=== PATIENT | male | born 1960 | race African-American/Black ===

== ENCOUNTER 2017-07-06 13:57 | Outpatient (CLI) ==
[2014-10-19 01:27] VITALS: BMI 36.9
--- NOTE | 2017-07-06 14:24 | DI ---
EXAM: Two views of the chest. History: Cough and wheezing Comparison: Chest radiograph 02/18/2015 Findings: Heart size is normal. No focal consolidation. No appreciable pleural fluid and no pneum othorax. No acute osseous abnormalities. Impression: No acute cardiopulmonary process. No change compared to the prior study.
== END 2017-07-06 13:58 | disposition home or self-care (01) ==
LOC: RAD 13:57
PROVIDERS: ATTEND Family Medicine
DX: J40 Bronchitis, not specified as acute or chronic (principal)

== ENCOUNTER 2018-06-30 14:39 | Emergency (ER) | payer OTHER ==
[2018-06-30 14:43] VITALS: BP 157/92; TEMP 97.2; BMI 39.0
--- NOTE | 2018-06-30 16:27 | ED.PDOC ---
General ED Provider: Dr. GALILEA BELLO Chief Complaint: Abnormal Labs Stated Complaint: hypokalemia as out pt Time Seen by Physician: 01:45 (seen with nurse ) Mode of Arrival: Walk-In Information Source: Patient, Family Exam Limitations: No limitations Primary Care Provider: ROSALES BANGURA Nursing and Triage Documentation Reviewed and Agree: Yes Does patient meet sepsis criteria?: No System Inflammatory Response Syndrome: Not Applicable Sepsis Protocol: For patient's 13 years and over: Temp is 96.8 and below OR 101 and greater Pulse >90 BPM Resp >20/minute Acutely Altered Mental Status Are patient's symptoms suggestive of a new infection, such as: -Pneumonia -Skin, Soft Tissue -Endocarditis -UTI -Bone, Joint Infection -Implantable Device -Acute Abdominal Infection -Wound Infection -Meningitis -Blood Stream Catheter Infection -Unknown Miscellaneous Complaint Exam - Complex/Multi-System Complaint/Exam Symptoms Are: Resolved Episodes Lasting: Days Initial Severity: Mild Current Severity: Mild Location of Pain: no Associated Signs and Symptoms: Denies: Decreased responsiveness, Confusion, Agitation, Dizziness, Weakness, Syncope, Headache, Short of air, Cough, Wheezing , Hemoptysis, Chest pain, Palpitations, Edema, Nausea, Vomiting, Diarrhea, Abdominal pain, Back pain, Dysuria, Hematemesis, Melena, Decreased oral intake, Fever, Diaphoresis, Immunocompromised, Anticoagulation Therapy, Recent medication changes, 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 Review of Systems - Review Of Systems Constitutional: Reports: No symptoms Eyes: Reports: No symptoms Ears, Nose, Mouth, Throat: Reports: No symptoms Respiratory: Reports: No symptoms Cardiac: Reports: No symptoms GI: Reports: No symptoms : Reports: No symptoms Musculoskeletal: Reports: No symptoms Skin: Reports: No symptoms Neurological: Reports: No symptoms Endocrine: Reports: No symptoms Hematologic/Lymphatic: Reports: No symptoms All Other Systems: Reviewed and Negative Past Medical History - Past Medical History Previously Healthy: Yes Endocrine: Reports: None Cardiovascular: Reports: None Respiratory: Reports: None Hematological: Reports: None Gastrointestinal: Reports: None Genitourinary: Reports: None Neuro/Psych: Reports: None Musculoskeletal: Reports: None Cancer: Reports: None - Surgical History General Surgical History: Reports: None - Family History Family History: Reports: None - Social History Smoking Status: Former smoker Hx Substance Use: No Alcohol Screening: Occasionally Physical Exam - Physical Exam Appearance: Well-appearing, No pain distress, Well-nourished Eyes: JHON, EOMI, Conjunctiva clear ENT: Ears normal, Nose normal, Oropharynx normal Respiratory: Airway patent, Breath sounds clear, Breath sounds equal, Respirations nonlabored Cardiovascular: RRR, Pulses normal, No rub, No murmur GI/: Soft, Nontender, No masses, Bowel sounds normal, No Organomegaly Musculoskeletal: Normal strength, ROM intact, No edema, No calf tenderness Skin: Warm, Dry, Normal color Neurological: Sensation intact, Motor intact, Reflexes intact, Cranial nerves intact, Alert, Oriented Psychiatric: Affect appropriate, Mood appropriate Critical Care Note - Critical Care Note Total Time (mins): 0 Course - Course Hematology/Chemistry: 06/30/18 14:55 Orders, Labs, Meds: Lab Review 06/30/18 14:55 Sodium 141 Potassium 3.1 L Chloride 99 Carbon Dioxide 29 Anion Gap 16.1 BUN 14 Creatinine 1.03 Estimated GFR (MDRD) 91.00 BUN/Creatinine Ratio 13.59 Glucose 77 Calcium 10.1 Total Bilirubin 1.6 H AST 34 ALT 12 Alkaline Phosphatase 119 Total Protein 7.9 Albumin 3.9 Globulin 4.0 Albumin/Globulin Ratio 0.98 Orders Category Date Time Status COMPREHENSIVE METABOLIC PANEL Stat LAB 06/30/18 14:55 Completed Vital Signs: Temp Pulse Resp BP Pulse Ox 06/30/18 14:39 97.2 F L 66 18 157/92 H 98 Departure - Departure Time of Disposition: 16:26 Disposition: HOME SELF-CARE Discharge Problem: Hypokalemia Instructions: Hypokalemia (ED) Condition: Good Pt referred to PMD for follow-up: Yes IPMP verified?: No Additional Instructions: Please call your Family Physician as soon as possible to schedule a follow-up appointment. Allergies/Adverse Reactions: Allergies No Known Allergies Allergy (Verified 06/30/18 15:02) Home Medications: Ambulatory Orders Esomeprazole Magnesium [Nexium] 40 mg PO BID 01/13/14 Lisinopril [Zestril] 40 mg PO DAILY 01/13/14 Propranolol/Hydrochlorothiazid [Propranolol-Hctz 40-25 mg Tab] 1 mg PO DAILY 07/21 Metoclopramide HCl 10 mg PO ACHS 10/19/14
== END 2018-06-30 16:32 | disposition home or self-care (01) ==
LOC: ED 14:39
DX: E87.6 Hypokalemia (principal)
CPT/HCPCS: 36415; 80053; 99283

== ENCOUNTER 2018-11-14 07:12 | Day surgery (SDC) ==
[2018-11-14] MEDS: BETADINE OPTH PREP OP PRN ×2 (07:25→08:13)
[2018-11-14] MEDS: TETRACAINE 0.5% UNIT-DOSE OP PRN ×3 (07:25→08:19)
[2018-11-14] MEDS: CYCLOGYL 2% OPTH OP PRN ×3 (07:26→07:36)
[2018-11-14] MEDS ORDERED: DEX-MOXI-KETOR OPTH INJ 1/0.5/0.4 MG/ML IO ONE (07:33)
[2018-11-14] MEDS ORDERED: LIDOCAINE 1% 20 ML MDV ID STA (07:33)
[2018-11-14] MEDS ORDERED: BSS WITH EPINEPHRINE OP ONE (07:33)
[2018-11-14] MEDS ORDERED: LIDOCAINE 1%/PHENYLEPHRINE 1.5% BSS (SURGERY) INTRAOCULA ONE (07:33)
[2018-11-14] MEDS ORDERED: BRIMONIDINE TARTRATE 0.2% OPTH SOL OP PRN (07:33)
[2018-11-14] MEDS ORDERED: ZOFRAN 4 MG/2 ML IVP ONE (07:33)
[2018-11-14 07:43] VITALS: TEMP 98
[2018-11-14] MEDS ORDERED: SUBLIMAZE ONE (08:15)
[2018-11-14] MEDS ORDERED: ZOFRAN 4 MG/2 ML ONE (08:15)
[2018-11-14] MEDS ORDERED: VERSED ONE (08:15)
[2018-11-14 08:49] VITALS: BP 138/76
== END 2018-11-14 09:10 | disposition home or self-care (01) ==
LOC: SURG 07:12
PROVIDERS: ATTEND Ophthalmology
DX: H25.812 Combined forms of age-related cataract, left eye (principal)

== ENCOUNTER 2018-12-13 12:54 | Outpatient (POV) | payer OTHER | END 2018-12-13 17:00 | LOC: OUTPT 12:54 | PROVIDERS: ATTEND Otolaryngology | DX: H91.90 Unspecified hearing loss, unspecified ear (principal) | CPT/HCPCS: 92557; 92567 ==